=== PATIENT | female | born 1985 | race Hispanic/Latino ===

== ENCOUNTER 2017-11-16 08:46 | Emergency (ER) | payer MEDICAID, MEDICARE, SELFPAY | END 2017-11-16 09:15 | disposition home or self-care (01) | LOC: NAV ERS 08:46 | DX: F12.10 Cannabis abuse, uncomplicated (principal); F31.9 Bipolar disorder, unspecified; F41.9 Anxiety disorder, unspecified; F20.9 Schizophrenia, unspecified | CPT/HCPCS: 99284 ==

== ENCOUNTER 2018-11-24 09:53 | Emergency (ER) | payer MEDICARE ==
[2018-11-24 11:16] LABS: Bilirubin Negative (Negative); Blood, Urine Negative (Negative); Glucose, Urine (Dipstick) Negative (Negative); Leukocyte Negative (Negative); Nitrite Positive (Negative); Protein, Urine (Dipstick) Negative (Neg-Trace); Specific Gravity, Urine 1.015 (1.005-1.030); Urobilinogen 0.2 mg/dL (0.2-1.0); pH, Urine 7.5 (5.0-9.0)
[2018-11-24] MEDS ORDERED: Sodium Chloride 0.9% 1,000 ML ONE (11:18)
[2018-11-24 11:19] LABS: #Basophils 0.1 thou/uL (0.0-0.2); #Eosinphils 0.2 thou/uL (0.0-0.7); #Lymphocytes 2.6 thou/uL (1.20-3.40); #Monocytes 0.5 thou/uL (0.11-0.59); #Neutrophils 6.4 thou/uL (1.40-6.50); %Basophils 0.6 % (0.0-1.0); %Eosinophils 1.8 % (0.0-10.0); %Lymphocytes 26.5 % (21.0-51.0); %Monocytes 5.4 % (0.0-10.0); %Neutrophils 65.7 % (42.0-75.0); Hemoglobin 10.3 g/dL (12.0-16.0); Mean Corpuscular HGB CONC 32.9 g/dL (32.0-36.0); Mean Corpuscular Hemoglobin 28.3 pg (27.0-31.0); Mean Corpuscular Volume 85.9 fL (78.0-98.0); Mean Platelet Volume 8.6 fL (7.4-10.4); Platelet Count 277 thou/uL (130-400); RBC Distribution Width 13.4 % (11.5-14.5); Red Blood Cell (RBC) Count 3.62 mill/uL (4.20-5.40); White Blood Cell (WBC) Count 9.7 thou/uL (4.8-10.8)
[2018-11-24 11:28] LABS: Phencyclidine (PCP) Detected (NotDetected); THC/Cannabinoid Screen Detected (NotDetected)
[2018-11-24 11:29] LABS: Amphetamine Not Detected (NotDetected); BHCG - Serum POSITIVE (NEGATIVE); Barbiturates Screen Not Detected (NotDetected); Benzodiazepine Screen Not Detected (NotDetected); Cocaine Metabolite Screen Not Detected (NotDetected); Medtox Control Line Valid? VALID (VALID); Methadone Not Detected (NotDetected); Methamphetamine Not Detected (NotDetected); Opiate Screen Detected (NotDetected); Oxycodone Screen Not Detected (NotDetected); Pregs Control Bar Appear? YES (CONTROL BAR); Tricyclic Screen Not Detected (NotDetected)
[2018-11-24 11:30] LABS: Clarity SL HAZY (Clear)
[2018-11-24 11:32] LABS: Bacteria/HPF 2+ HPF (None Seen); Squamous Epithelial 0-3 HPF (0-3); WBC/HPF 0-3 HPF (0-3)
[2018-11-24 11:39] LABS: ALT (SGPT) 13 U/L (8-55); AST (SGOT) 16 U/L (5-34); Acetaminophen Less than 6.0 mcg/mL (10.0-30.0); Albumin 3.6 g/dL (3.5-5.0); Alcohol Less than 10 mg/dL (Less than 10); Alkaline Phosphatase 73 U/L (40-150); Anion Gap 13 mmol/L (10-20); BUN (Urea Nitrogen) 8 mg/dL (7.0-18.7); Bilirubin, Total 0.3 mg/dL (0.2-1.2); Calc. Creatinine Clearance 0 mL/min (70-130); Calcium 9.1 mg/dL (7.8-10.44); Carbon Dioxide 21 mmol/L (22-29); Chloride 104 mmol/L (98-107); Estimated GFR-MDRD Greater than 90; Globulin 2.8 g/dL (2.4-3.5); Glucose 83 mg/dL (70-105); Potassium 3.8 mmol/L (3.5-5.1); Protein, Total 6.4 g/dL (6.0-8.3); Salicylate Less than 8.0 mg/dL (15.0-30.0); Sodium 134 mmol/L (136-145)
== END 2018-11-24 14:21 | disposition home or self-care (01) ==
LOC: NAV ERS 09:53
DX: F20.9 Schizophrenia, unspecified (principal); F12.10 Cannabis abuse, uncomplicated; F16.10 Hallucinogen abuse, uncomplicated; F41.9 Anxiety disorder, unspecified; F31.9 Bipolar disorder, unspecified
CPT/HCPCS: 80053; 80306; 80307; 81003; 81015; 84484; 84703; 85025; 99284; J7050

== ENCOUNTER 2018-12-20 23:28 | Emergency (ER) | payer MEDICAID, MEDICARE ==
[2018-12-20] MEDS ORDERED: Ondansetron ODT 4 MG TAB ONE (23:55)
[2018-12-21 00:52] LABS: Bilirubin Negative (Negative); Blood, Urine Negative (Negative); Clarity Clear (Clear); Glucose, Urine (Dipstick) Negative (Negative); Leukocyte Trace (Negative); Nitrite Negative (Negative); Protein, Urine (Dipstick) 30 mg/dL (Neg-Trace); Specific Gravity, Urine 1.015 (1.005-1.030); pH, Urine 8.5 (5.0-9.0)
[2018-12-21 00:56] LABS: Bacteria/HPF None Seen HPF (None Seen); RBC/HPF None Seen HPF (0-3); Squamous Epithelial 0-3 HPF (0-3); WBC/HPF 0-3 HPF (0-3)
[2018-12-21 01:07] LABS: Cocaine Metabolite Screen Not Detected (NotDetected); Methamphetamine Not Detected (NotDetected); Opiate Screen Not Detected (NotDetected); Phencyclidine (PCP) Not Detected (NotDetected); THC/Cannabinoid Screen Detected (NotDetected)
[2018-12-21 01:08] LABS: Amphetamine Not Detected (NotDetected); Barbiturates Screen Not Detected (NotDetected); Benzodiazepine Screen Not Detected (NotDetected); Medtox Control Line Valid? VALID (VALID); Methadone Not Detected (NotDetected); Oxycodone Screen Not Detected (NotDetected); Tricyclic Screen Not Detected (NotDetected)
== END 2018-12-21 01:30 | disposition home or self-care (01) ==
LOC: NAV ERS 23:28
DX: R11.2 Nausea with vomiting, unspecified (principal); F41.9 Anxiety disorder, unspecified; F31.9 Bipolar disorder, unspecified; F17.210 Nicotine dependence, cigarettes, uncomplicated; Z79.82 Long term (current) use of aspirin
CPT/HCPCS: 80306; 81003; 81015; 99284; A4353; Q0162

== ENCOUNTER → 2019-01-02 | Emergency (ER) | payer MEDICARE, MEDICAID ==
[~2019-01-02] MED LIST: Azithromycin 250 MG TAB ONE; Lidocaine 1% (PF) 30 ML VIAL ONE; Ondansetron ODT 4 MG TAB ONE; cefTRIAXone\\ROCEPHIN 500 MG VIAL ONE
[2019-01-02 05:04] LABS: ALT (SGPT) 12 U/L (8-55); AST (SGOT) 24 U/L (5-34); Acetaminophen Less than 6.0 mcg/mL (10.0-30.0); Albumin 3.3 g/dL (3.5-5.0); Alcohol Less than 10 mg/dL (Less than 10); Alkaline Phosphatase 103 U/L (40-150); Anion Gap 13 mmol/L (10-20); BUN (Urea Nitrogen) 9 mg/dL (7.0-18.7); Bilirubin, Total 0.3 mg/dL (0.2-1.2); Calc. Creatinine Clearance 0 mL/min (70-130); Calcium 8.8 mg/dL (7.8-10.44); Carbon Dioxide 22 mmol/L (22-29); Chloride 102 mmol/L (98-107); Estimated GFR-MDRD Greater than 90; Globulin 3.1 g/dL (2.4-3.5); Glucose 126 mg/dL (70-105); Protein, Total 6.4 g/dL (6.0-8.3); Salicylate Less than 8.0 mg/dL (15.0-30.0); Sodium 134 mmol/L (136-145)
[2019-01-02 05:05] LABS: BHCG - Serum POSITIVE (NEGATIVE); Pregs Control Bar Appear? YES (CONTROL BAR)
[2019-01-02 05:06] LABS: #Basophils 0.1 thou/uL (0.0-0.2); #Eosinphils 0.3 thou/uL (0.0-0.7); #Monocytes 0.7 thou/uL (0.11-0.59); #Neutrophils 13.1 thou/uL (1.40-6.50); %Basophils 0.6 % (0.0-1.0); %Eosinophils 1.8 % (0.0-10.0); %Lymphocytes 12.4 % (21.0-51.0); %Monocytes 4.6 % (0.0-10.0); %Neutrophils 80.6 % (42.0-75.0); Hemoglobin 9.4 g/dL (12.0-16.0); Mean Corpuscular HGB CONC 33.1 g/dL (32.0-36.0); Mean Corpuscular Hemoglobin 27.8 pg (27.0-31.0); Mean Corpuscular Volume 83.9 fL (78.0-98.0); Mean Platelet Volume 7.8 fL (7.4-10.4); Platelet Count 272 thou/uL (130-400); RBC Distribution Width 13.3 % (11.5-14.5); Red Blood Cell (RBC) Count 3.38 mill/uL (4.20-5.40); White Blood Cell (WBC) Count 16.2 thou/uL (4.8-10.8)
[2019-01-02 05:06] LABS: Wet Prep Clue Cells Clue Cells Absent (None Seen); Wet Prep Trichomonas Trichomonas Absent (None Seen)
[2019-01-02 05:07] LABS: Wet Prep Spermatozoa 2nd Revie Agree with result (None Seen)
[2019-01-02 05:10] LABS: Thyroid Stimulating Hormone 2.2285 uIU/mL (0.35-4.94)
[2019-01-02 05:14] LABS: MDiff Complete? YES; Manual Diff?? NO
[2019-01-02 19:30] LABS: Chlamydia by PCR Not Detected (NotDetected); GC by PCR Not Detected (NotDetected)
== END ==
LOC: NAV ERS 03:28
DX: O23.599 Infection of other part of genital tract in pregnancy, unspecified trimester (principal); O99.340 Other mental disorders complicating pregnancy, unspecified trimester; F20.9 Schizophrenia, unspecified; Z3A.00 Weeks of gestation of pregnancy not specified
CPT/HCPCS: 36415; 80053; 80307; 84443; 84703; 85025; 87210; 87491; 87591; 99283; A4353; J0696; J2001; Q0162

== ENCOUNTER 2019-01-12 05:47 | Emergency (ER) | payer MEDICAID, MEDICARE ==
[2019-01-12 06:36] LABS: Bilirubin Small (Negative); Blood, Urine Negative (Negative); Clarity Clear (Clear); Glucose, Urine (Dipstick) Negative (Negative); Leukocyte Small (Negative); Nitrite Negative (Negative); Pregnancy Test - Urine (BHCG) POSITIVE (Negative); Pregu Control Background? CLEAR/WHITE (CLR/WHITE); Pregu Control Bar Appear? YES (CONTROL BAR); Protein, Urine (Dipstick) Trace mg/dL (Neg-Trace); RBC/HPF None Seen HPF (0-3); Specific Gravity 1.025 (1.002-1.036); Specific Gravity, Urine 1.025 (1.005-1.030)
[2019-01-12 06:37] LABS: Bacteria/HPF 1+ HPF (None Seen)
[2019-01-12 06:44] LABS: Amphetamine Detected (NotDetected); Barbiturates Screen Not Detected (NotDetected); Benzodiazepine Screen Not Detected (NotDetected); Cocaine Metabolite Screen Not Detected (NotDetected); Medtox Control Line Valid? VALID (VALID); Methadone Not Detected (NotDetected); Methamphetamine Detected (NotDetected); Opiate Screen Not Detected (NotDetected); Oxycodone Screen Not Detected (NotDetected); Phencyclidine (PCP) Detected (NotDetected); THC/Cannabinoid Screen Detected (NotDetected); Tricyclic Screen Not Detected (NotDetected)
== END 2019-01-12 07:08 | disposition home or self-care (01) ==
LOC: NAV ERS 05:47
DX: O23.40 Unspecified infection of urinary tract in pregnancy, unspecified trimester (principal); O99.340 Other mental disorders complicating pregnancy, unspecified trimester; F20.9 Schizophrenia, unspecified; Z3A.00 Weeks of gestation of pregnancy not specified
CPT/HCPCS: 80306; 81003; 81015; 81025; 87086; 99283

== ENCOUNTER 2019-01-15 08:30 | Outpatient (CLI) | payer MEDICAID ==
--- NOTE | 2019-01-15 11:10 | ULT ---
EXAM: US OB Complete STANDARD PROVIDED CLINICAL HISTORY: Intrauterine gestation. Evaluate size and anatomy. COMPARISON: None available. FINDINGS: There is a single intrauterine gestation in breech presentation. Cardiac Doppler demonstrates h eart tones with a heart rate of 146 bpm. The placenta is located posteriorly without evidence of placenta previa. There is a normal amount of amniotic fluid with an amniotic fluid index of 16.68 cm. The cervix is not well visualized and cervical measurement length was not obtained. biometry measurements: Biparietal diameter 7.62 cm, 30 weeks 4 days Head circumference 27.84 cm, 30 weeks 3 days Abdominal circumference 26.14 cm, 30 weeks 2 days Femur length 5.8 cm, 30 weeks 5 days The estimated gestational age by ultrasound is 30 weeks and 1 day with an JENNIFER on 03/25/2019. Gestation al age by last menstrual period is not known. The estimated weight by ultrasound is 1576 g (3 pounds, 8 ounces). Visualized unprovided sonogr aphic images. Visualized portions of the cerebellum and visualized portions of the spine demonstrate a normal sonographic appearance. A definite 4 chamber heart is unable to be delineated. The stomach, bilateral kidneys, and urinary bladder demonstrate a normal sonographic appearance. There is evidence of a three-vessel cord. The cord insertion is not visualized. No definitive anomalies are seen on the provided sonographic images. IMPRESSION: 1. Single intrauterine gestation in breech presentation with heart tones documented. 2. Gestational age by ultrasound is 30 weeks and 1 day with JENNIFER of 03/25/2019. 3. Estimated weight by ultrasound is 1576 g (3 pounds, 8 ounces). 4. Amniotic fluid index measures 16.68 cm. 5. A definite 4 chamber heart is unable to be delineated on provided images, and a cord insertion is not seen. There are otherwise no definitive anomalies
== END 2019-01-15 08:31 | disposition home or self-care (01) ==
LOC: NAV ULT 08:30
PROVIDERS: ATTEND Nurse Practitioner
DX: O09.93 Supervision of high risk pregnancy, unspecified, third trimester (principal); Z3A.30 30 weeks gestation of pregnancy
CPT/HCPCS: 76805

== ENCOUNTER 2019-01-19 23:46 | Emergency (ER) | payer MEDICAID, MEDICARE ==
[2019-01-20 00:18] LABS: #Basophils 0.1 thou/uL (0.0-0.2); #Eosinphils 0.2 thou/uL (0.0-0.7); #Lymphocytes 2.7 thou/uL (1.20-3.40); #Monocytes 0.6 thou/uL (0.11-0.59); %Basophils 0.9 % (0.0-1.0); %Eosinophils 2.1 % (0.0-10.0); %Lymphocytes 23.2 % (21.0-51.0); %Neutrophils 68.8 % (42.0-75.0); Hemoglobin 9.2 g/dL (12.0-16.0); Mean Corpuscular HGB CONC 32.5 g/dL (32.0-36.0); Mean Corpuscular Hemoglobin 26.7 pg (27.0-31.0); Mean Corpuscular Volume 82.2 fL (78.0-98.0); Mean Platelet Volume 8.5 fL (7.4-10.4); Platelet Count 283 thou/uL (130-400); RBC Distribution Width 13.2 % (11.5-14.5); Red Blood Cell (RBC) Count 3.44 mill/uL (4.20-5.40); White Blood Cell (WBC) Count 11.6 thou/uL (4.8-10.8)
[2019-01-20 00:31] LABS: ALT (SGPT) 8 U/L (8-55); AST (SGOT) 20 U/L (5-34); Albumin 3.3 g/dL (3.5-5.0); Alkaline Phosphatase 127 U/L (40-150); Anion Gap 14 mmol/L (10-20); BUN (Urea Nitrogen) 13 mg/dL (7.0-18.7); Bilirubin, Total 0.2 mg/dL (0.2-1.2); Calc. Creatinine Clearance 0 mL/min (70-130); Calcium 9.2 mg/dL (7.8-10.44); Carbon Dioxide 20 mmol/L (22-29); Chloride 108 mmol/L (98-107); Estimated GFR-MDRD Greater than 90; Globulin 3.1 g/dL (2.4-3.5); Glucose 132 mg/dL (70-105); Potassium 3.5 mmol/L (3.5-5.1); Protein, Total 6.4 g/dL (6.0-8.3); Sodium 138 mmol/L (136-145)
[2019-01-20] MEDS ORDERED: Sodium Chloride 0.9% 1,000 ML ONE (00:32)
== END 2019-01-20 01:19 | disposition short-term general hospital (02) ==
LOC: NAV ERS 23:46
DX: O26.893 Other specified pregnancy related conditions, third trimester (principal); R10.9 Unspecified abdominal pain; O99.343 Other mental disorders complicating pregnancy, third trimester; F20.9 Schizophrenia, unspecified; Z3A.31 31 weeks gestation of pregnancy
CPT/HCPCS: 80053; 85025; 96360; J7050

== ENCOUNTER 2019-01-30 22:55 | Emergency (ER) | payer MEDICAID | END 2019-01-30 23:10 | disposition home or self-care (01) | LOC: NAV ERS 22:55 | DX: O47.03 False labor before 37 completed weeks of gestation, third trimester (principal); O99.343 Other mental disorders complicating pregnancy, third trimester; F25.9 Schizoaffective disorder, unspecified; O99.333 Smoking (tobacco) complicating pregnancy, third trimester | CPT/HCPCS: 99283 ==

== ENCOUNTER 2019-02-05 10:51 | Emergency (ER) | payer MEDICAID, MEDICARE | END 2019-02-05 11:35 | disposition home or self-care (01) | LOC: NAV ERS 10:51 | DX: O99.340 Other mental disorders complicating pregnancy, unspecified trimester (principal); F20.0 Paranoid schizophrenia; O99.330 Smoking (tobacco) complicating pregnancy, unspecified trimester | CPT/HCPCS: 99283 ==

== ENCOUNTER 2019-02-06 15:28 | Emergency (ER) | payer MEDICAID | END 2019-02-06 16:15 | disposition home or self-care (01) | LOC: NAV ERS 15:28 | DX: O99.89 Other specified diseases and conditions complicating pregnancy, childbirth and the puerperium (principal); L29.2 Pruritus vulvae; O99.343 Other mental disorders complicating pregnancy, third trimester; F20.89 Other schizophrenia; O99.333 Smoking (tobacco) complicating pregnancy, third trimester; F17.210 Nicotine dependence, cigarettes, uncomplicated; Z3A.38 38 weeks gestation of pregnancy ==

== ENCOUNTER 2019-02-06 20:16 | Emergency (ER) | payer MEDICAID ==
[2019-02-06 21:21] LABS: Bilirubin Negative (Negative); Blood, Urine Negative (Negative); Glucose, Urine (Dipstick) Negative (Negative); Leukocyte Large (Negative); Nitrite Negative (Negative); Protein, Urine (Dipstick) Negative (Neg-Trace); Specific Gravity, Urine 1.015 (1.005-1.030); Urobilinogen 0.2 mg/dL (0.2-1.0)
[2019-02-06 21:22] LABS: #Basophils 0.1 thou/uL (0.0-0.2); #Eosinphils 0.4 thou/uL (0.0-0.7); #Lymphocytes 3.7 thou/uL (1.20-3.40); #Monocytes 0.4 thou/uL (0.11-0.59); #Neutrophils 6.3 thou/uL (1.40-6.50); %Basophils 0.6 % (0.0-1.0); %Eosinophils 3.3 % (0.0-10.0); %Lymphocytes 34.2 % (21.0-51.0); %Neutrophils 57.9 % (42.0-75.0); Hemoglobin 9.6 g/dL (12.0-16.0); Mean Corpuscular HGB CONC 32.2 g/dL (32.0-36.0); Mean Corpuscular Hemoglobin 26.2 pg (27.0-31.0); Mean Corpuscular Volume 81.2 fL (78.0-98.0); Mean Platelet Volume 8.3 fL (7.4-10.4); Platelet Count 282 thou/uL (130-400); RBC Distribution Width 13.6 % (11.5-14.5); Red Blood Cell (RBC) Count 3.66 mill/uL (4.20-5.40); White Blood Cell (WBC) Count 10.9 thou/uL (4.8-10.8)
[2019-02-06 21:30] LABS: Clarity Hazy (Clear)
[2019-02-06 21:31] LABS: RBC/HPF 0-3 HPF (0-3)
[2019-02-06 21:32] LABS: Bacteria/HPF 2+ HPF (None Seen)
[2019-02-06 21:33] LABS: Amphetamine Not Detected (NotDetected); Barbiturates Screen Not Detected (NotDetected); Benzodiazepine Screen Not Detected (NotDetected); Cocaine Metabolite Screen Not Detected (NotDetected); Medtox Control Line Valid? VALID (VALID); Methadone Not Detected (NotDetected); Methamphetamine Not Detected (NotDetected); Opiate Screen Not Detected (NotDetected); Oxycodone Screen Not Detected (NotDetected); Phencyclidine (PCP) Detected (NotDetected); THC/Cannabinoid Screen Detected (NotDetected); Tricyclic Screen Not Detected (NotDetected)
[2019-02-06 21:37] LABS: Acetaminophen Less than 6.0 mcg/mL (10.0-30.0); Alcohol Less than 10 mg/dL (Less than 10); Salicylate Less than 8.0 mg/dL (15.0-30.0)
[2019-02-06 21:39] LABS: ALT (SGPT) 12 U/L (8-55); AST (SGOT) 20 U/L (5-34); Albumin 3.4 g/dL (3.5-5.0); Alkaline Phosphatase 154 U/L (40-150); Anion Gap 14 mmol/L (10-20); BUN (Urea Nitrogen) 10 mg/dL (7.0-18.7); Bilirubin, Total 0.2 mg/dL (0.2-1.2); Calc. Creatinine Clearance 0 mL/min (70-130); Carbon Dioxide 22 mmol/L (22-29); Chloride 105 mmol/L (98-107); Estimated GFR-MDRD Greater than 90; Globulin 3.3 g/dL (2.4-3.5); Glucose 81 mg/dL (70-105); Potassium 3.9 mmol/L (3.5-5.1); Protein, Total 6.7 g/dL (6.0-8.3); Sodium 137 mmol/L (136-145)
== END 2019-02-06 21:32 | disposition short-term general hospital (02) ==
LOC: NAV ERS 20:16
DX: O99.89 Other specified diseases and conditions complicating pregnancy, childbirth and the puerperium (principal); R10.2 Pelvic and perineal pain; O99.340 Other mental disorders complicating pregnancy, unspecified trimester; F20.89 Other schizophrenia; Z3A.00 Weeks of gestation of pregnancy not specified
CPT/HCPCS: 36415; 80053; 80306; 80307; 81003; 81015; 85025; 86900; 86901; 99284

== ENCOUNTER 2019-02-16 22:43 | Emergency (ER) | payer MEDICAID ==
[2019-02-16 23:45] LABS: Bilirubin Negative (Negative); Blood, Urine Negative (Negative); Clarity Clear (Clear); Glucose, Urine (Dipstick) Negative (Negative); Leukocyte Moderate (Negative); Nitrite Positive (Negative); Protein, Urine (Dipstick) Negative (Neg-Trace); Specific Gravity, Urine 1.015 (1.005-1.030)
[2019-02-16 23:50] LABS: Bacteria/HPF 2+ HPF (None Seen); RBC/HPF 0-3 HPF (0-3); Squamous Epithelial 0-3 HPF (0-3)
[2019-02-16 23:53] LABS: Cocaine Metabolite Screen Not Detected (NotDetected); Methamphetamine Detected (NotDetected); Phencyclidine (PCP) Detected (NotDetected); THC/Cannabinoid Screen Detected (NotDetected)
[2019-02-16 23:54] LABS: Amphetamine Detected (NotDetected); Barbiturates Screen Not Detected (NotDetected); Benzodiazepine Screen Not Detected (NotDetected); Medtox Control Line Valid? VALID (VALID); Methadone Not Detected (NotDetected); Opiate Screen Not Detected (NotDetected); Oxycodone Screen Not Detected (NotDetected); Tricyclic Screen Not Detected (NotDetected)
== END 2019-02-17 00:10 | disposition short-term general hospital (02) ==
LOC: NAV ERS 22:43
DX: O21.2 Late vomiting of pregnancy (principal); O99.343 Other mental disorders complicating pregnancy, third trimester; F20.9 Schizophrenia, unspecified; O99.333 Smoking (tobacco) complicating pregnancy, third trimester; Z3A.34 34 weeks gestation of pregnancy
CPT/HCPCS: 80306; 81003; 81015; 87491; 87591; 99284

== ENCOUNTER 2019-02-18 10:02 | Emergency (ER) | payer MEDICAID | END 2019-02-18 11:09 | disposition home or self-care (01) | LOC: NAV ERS 10:02 | DX: O26.893 Other specified pregnancy related conditions, third trimester (principal); R06.00 Dyspnea, unspecified; O99.343 Other mental disorders complicating pregnancy, third trimester; F20.9 Schizophrenia, unspecified; O99.333 Smoking (tobacco) complicating pregnancy, third trimester; Z3A.39 39 weeks gestation of pregnancy | CPT/HCPCS: 99284 ==

== ENCOUNTER → 2019-02-22 | Emergency (ER) | payer MEDICAID, MEDICARE | LOC: NAV ERS 20:38 | DX: O26.899 Other specified pregnancy related conditions, unspecified trimester (principal); L29.2 Pruritus vulvae; O99.340 Other mental disorders complicating pregnancy, unspecified trimester; F20.9 Schizophrenia, unspecified; O99.330 Smoking (tobacco) complicating pregnancy, unspecified trimester; F17.210 Nicotine dependence, cigarettes, uncomplicated | CPT/HCPCS: 99285 ==

== ENCOUNTER 2019-02-23 01:16 | Emergency (ER) | payer MEDICAID | END 2019-02-23 01:35 | LOC: NAV ERS 01:16 | DX: O99.89 Other specified diseases and conditions complicating pregnancy, childbirth and the puerperium (principal); O99.340 Other mental disorders complicating pregnancy, unspecified trimester; O99.330 Smoking (tobacco) complicating pregnancy, unspecified trimester; F17.210 Nicotine dependence, cigarettes, uncomplicated | CPT/HCPCS: 99282 ==

== ENCOUNTER 2019-03-13 04:20 | Emergency (ER) | payer MEDICARE, MEDICAID | END 2019-03-13 04:55 | disposition home or self-care (01) | LOC: NAV ERS 04:20 | DX: Z48.817 Encounter for surgical aftercare following surgery on the skin and subcutaneous tissue (principal); F17.210 Nicotine dependence, cigarettes, uncomplicated | CPT/HCPCS: 99281 ==

== ENCOUNTER 2019-04-06 02:25 | Emergency (ER) | payer MEDICARE, MEDICAID ==
[2019-04-06] MEDS ORDERED: Ondansetron ODT 4 MG TAB ONE (02:50)
== END 2019-04-06 02:55 | disposition home or self-care (01) ==
LOC: NAV ERS 02:25
DX: R11.2 Nausea with vomiting, unspecified (principal); F20.9 Schizophrenia, unspecified; F17.200 Nicotine dependence, unspecified, uncomplicated
CPT/HCPCS: 99283; Q0162

== ENCOUNTER 2019-06-28 14:32 | Emergency (ER) | payer MEDICARE, MEDICAID | END 2019-06-28 15:50 | disposition home or self-care (01) | LOC: NAV ERS 14:32 | DX: M79.672 Pain in left foot (principal); M79.671 Pain in right foot; F20.9 Schizophrenia, unspecified; F17.210 Nicotine dependence, cigarettes, uncomplicated | CPT/HCPCS: 99281 ==

== ENCOUNTER 2019-08-20 13:25 | Emergency (ER) | payer MEDICARE, MEDICAID | END 2019-08-20 13:47 | LOC: NAV ERS 13:25 | DX: Z02.89 Encounter for other administrative examinations (principal); F20.9 Schizophrenia, unspecified; F17.210 Nicotine dependence, cigarettes, uncomplicated | CPT/HCPCS: 99282 ==

== ENCOUNTER 2019-12-08 01:34 | Emergency (ER) | payer MEDICAID, MEDICARE | END 2019-12-08 03:03 | disposition home or self-care (01) | LOC: NAV ERS 01:34 | DX: M79.89 Other specified soft tissue disorders (principal); F17.210 Nicotine dependence, cigarettes, uncomplicated | CPT/HCPCS: 99281 ==

== ENCOUNTER 2019-12-14 05:35 | Emergency (ER) | payer MEDICARE | END 2019-12-14 06:03 | disposition home or self-care (01) | LOC: NAV ERS 05:35 | DX: M79.671 Pain in right foot (principal); M79.672 Pain in left foot; F17.210 Nicotine dependence, cigarettes, uncomplicated | CPT/HCPCS: 99283 ==

== ENCOUNTER 2019-12-15 15:59 | Emergency (ER) | payer MEDICARE | END 2019-12-15 16:14 | disposition home or self-care (01) | LOC: NAV ERS 15:59 | DX: R06.02 Shortness of breath (principal); F17.210 Nicotine dependence, cigarettes, uncomplicated | CPT/HCPCS: 99281 ==

== ENCOUNTER 2019-12-21 23:18 | Emergency (ER) | payer MEDICARE | END 2019-12-21 23:50 | disposition home or self-care (01) | LOC: NAV ERS 23:18 | DX: M79.672 Pain in left foot (principal); M79.671 Pain in right foot; F17.210 Nicotine dependence, cigarettes, uncomplicated | CPT/HCPCS: 99281 ==

== ENCOUNTER 2019-12-23 01:30 | Emergency (ER) | payer MEDICARE | END 2019-12-23 02:00 | disposition home or self-care (01) | LOC: NAV ERS 01:30 | DX: M79.672 Pain in left foot (principal); M79.671 Pain in right foot; F20.9 Schizophrenia, unspecified; F17.210 Nicotine dependence, cigarettes, uncomplicated | CPT/HCPCS: 99281 ==

== ENCOUNTER 2020-03-10 01:27 | Emergency (ER) | payer MEDICARE | END 2020-03-10 01:43 | disposition home or self-care (01) | LOC: NAV ERS 01:27 | DX: R06.00 Dyspnea, unspecified (principal); F17.210 Nicotine dependence, cigarettes, uncomplicated | CPT/HCPCS: 99284 ==

== ENCOUNTER 2020-03-30 02:26 | Emergency (ER) | payer MEDICARE | END 2020-03-30 02:45 | LOC: NAV ERS 02:26 | DX: R45.1 Restlessness and agitation (principal); F20.9 Schizophrenia, unspecified; F17.210 Nicotine dependence, cigarettes, uncomplicated | CPT/HCPCS: 99284 ==

== ENCOUNTER 2021-05-21 17:19 | Emergency (ER) | payer MEDICARE | END 2021-05-21 17:52 | disposition home or self-care (01) | LOC: NAV ERS 17:19 | DX: S61.411A Laceration without foreign body of right hand, initial encounter (principal); F17.210 Nicotine dependence, cigarettes, uncomplicated; W25.XXXA Contact with sharp glass, initial encounter | CPT/HCPCS: 12001 ==

== ENCOUNTER 2022-12-07 03:58 | Emergency (ER) | payer MEDICARE ==
[2022-12-07] MEDS ORDERED: Acetaminophen 500 MG TAB ONE (04:33)
== END 2022-12-07 04:36 | disposition home or self-care (01) ==
LOC: NAV ERS 03:58
DX: M79.671 Pain in right foot (principal); M79.672 Pain in left foot; F17.210 Nicotine dependence, cigarettes, uncomplicated
CPT/HCPCS: 99283

== ENCOUNTER 2024-04-26 21:45 | Emergency (ER) | payer MEDICARE, SELFPAY ==
[2024-04-26] MEDS ORDERED: Ibuprofen 800 MG TAB ONE (22:42)
== END 2024-04-26 22:55 | disposition home or self-care (01) ==
LOC: NAV ERS 21:45
DX: S90.821A Blister (nonthermal), right foot, initial encounter (principal); M79.671 Pain in right foot; M79.672 Pain in left foot; F17.210 Nicotine dependence, cigarettes, uncomplicated; X58.XXXA Exposure to other specified factors, initial encounter
CPT/HCPCS: 99283

== ENCOUNTER 2024-08-14 15:00 | Emergency (ER) | payer SELFPAY ==
[2024-08-14 15:41] LABS: #Basophils 0.1 thou/uL (0.0-0.2); #Eosinophils 0.5 thou/uL (0.0-0.7); #Lymphocytes 2.6 thou/uL (1.20-3.40); #Monocytes 1.2 thou/uL (0.11-0.59); %Basophils 1.2 % (0.0-1.0); %Eosinophils 4.6 % (0.0-10.0); %Lymphocytes 25.4 % (21.0-51.0); %Monocytes 11.3 % (0.0-10.0); %Neutrophils 57.6 % (42.0-75.0); Hemoglobin 11.3 g/dL (12.0-16.0); Mean Corpuscular HGB CONC 32.1 g/dL (32.0-36.0); Mean Corpuscular Hemoglobin 27.8 pg (27.0-31.0); Mean Corpuscular Volume 86.4 fl (78.0-98.0); Mean Platelet Volume 6.8 fL (7.4-10.4); Platelet Count 424 10x3/uL (130-400); RBC Distribution Width 13.2 % (11.5-14.5); Red Blood Cell (RBC) Count 4.05 mill/uL (4.20-5.40); White Blood Cell (WBC) Count 10.4 10x3/uL (4.8-10.8)
[2024-08-14 15:57] LABS: BHCG - Serum Negative (NEGATIVE); Pregs Control Bar Appear? YES (CONTROL BAR)
[2024-08-14 16:09] LABS: ALT (SGPT) 16 U/L (8-55); AST (SGOT) 17 U/L (5-34); Albumin 2.9 g/dL (3.5-5.0); Alkaline Phosphatase 62 U/L (40-110); Anion Gap 13 mmol/L (10-20); BUN (Urea Nitrogen) 10 mg/dL (7.0-18.7); Bilirubin, Total 0.5 mg/dL (0.2-1.2); Calc. Creatinine Clearance 0 mL/min (70-130); Calcium 8.8 mg/dL (7.8-10.44); Carbon Dioxide 23 mmol/L (22-29); Chloride 103 mmol/L (98-107); Estimated GFR 116; Globulin 4.6 g/dL (2.4-3.5); Glucose 85 mg/dL (70-105); Potassium 3.4 mmol/L (3.5-5.1); Protein, Total 7.5 g/dL (6.0-8.3); Sodium 136 mmol/L (136-145)
[2024-08-14 16:10] LABS: Acetaminophen Less than 10 mcg/mL (Less than 10); Alcohol Less than 10.0 mg/dL (Less than 10); Salicylate Less than 8.0 mg/dL (Less than 8.0)
[2024-08-14 16:38] LABS: Bilirubin Small (Negative); Blood, Urine Trace (Negative); Glucose, Urine (Dipstick) Negative (Negative); Ketone, Urine 80 mg/dL (Negative); Leukocyte Moderate (Negative); Nitrite Positive (Negative); Protein, Urine (Dipstick) 30 mg/dL (Neg-Trace)
[2024-08-14 16:39] LABS: Clarity Cloudy (Clear)
[2024-08-14 16:44] LABS: Bacteria/HPF 4+ HPF (None Seen); CAUTI Indications for Culture Dysuria,urgency,freq; Transitional Epithelial 0-3 HPF (None Seen); WBC/HPF 21-50 HPF (0-3)
[2024-08-14 16:46] LABS: Urine Culture Reflex Yes Yes
[2024-08-14 16:47] LABS: Amphetamine Detected (NotDetected); Barbiturates Screen Not Detected (NotDetected); Benzodiazepine Screen Not Detected (NotDetected); Cocaine Metabolite Screen Detected (NotDetected); Methadone Not Detected (NotDetected); Methamphetamine Detected (NotDetected); Opiate Screen Not Detected (NotDetected); Oxycodone Screen Not Detected (NotDetected); Phencyclidine (PCP) Not Detected (NotDetected); THC/Cannabinoid Screen Detected (NotDetected); Tricyclic Screen Not Detected (NotDetected)
[2024-08-14] MEDS ORDERED: Clindamycin/D5W 900 mg/50 ml Premix Bag ONE (17:02)
[2024-08-14] MEDS ORDERED: hydrOXYzine 25 MG TAB ONE (17:41)
[2024-08-15 13:00] LABS: Chlam.trachomatis by PCR,Urine Not Detected (NotDetected); GC N.gonorrhoeae PCR,UrineVOID Not Detected (NotDetected)
== END 2024-08-14 20:20 | disposition short-term general hospital (02) ==
LOC: NAV ERS 15:00
DX: F25.9 Schizoaffective disorder, unspecified (principal); N76.2 Acute vulvitis; L03.311 Cellulitis of abdominal wall; F15.10 Other stimulant abuse, uncomplicated; F17.210 Nicotine dependence, cigarettes, uncomplicated
CPT/HCPCS: 36416; 74177; 80053; 80306; 80307; 81001; 83605; 84443; 84703; 85025; 87040; 87070; 87077; 87086; 87205; 87491; 87591; 96365; J3490